=== PATIENT | male | born 1985 | race Caucasian/White ===

== ENCOUNTER 2017-05-04 12:12 | Emergency (ER) | payer OTHER ==
[~2017-05-04] VITALS: Ht 185.4 cm; Wt 99.3 kg
[~2017-05-04 12:12] MED LIST: AUGMENTIN 875875 MG PO; CLARITIN10 MG PO; FLONASE16 GM NS
[2017-05-04] MEDS ORDERED: CELEXA20 MG PO (12:22)
[2017-05-04 12:36] LABS: ABSOLUTE MONOCYTES 0.5 thou/uL (0.0-1.2); ABSOLUTE NEUTROPHILS 6.1 thou/uL (1.6-8.1); BASOPHILS 0.3 %; EOSINOPHILS 0.3 %; HEMATOCRIT 46.2 % (42.0-52.0); HEMOGLOBIN 15.6 gm/dL (14.0-18.0); LYMPHOCYTES 23.2 %; MCH 29.9 pg (26.0-34.0); MCHC 33.8 g/dL (28.0-37.0); MCV 88.5 fL (80.0-100.0); MONOCYTES 5.9 %; MPV 8.6 fl. (7.2-11.1); NUCLEATED RBCS 0 /100WBC; PLATELET COUNT* 221 thou/uL (150-400); POLYS 70.3 %; RBC 5.22 mil/uL (4.50-6.00); WBC 8.7 thou/uL (4.0-11.0)
[2017-05-04 12:45] LABS: CALCIUM 9.3 mg/dL (8.5-10.1); CREATININE 1.2 mg/dL (0.6-1.3); POTASSIUM 3.7 mmol/L (3.5-5.1)
[2017-05-04 12:50] LABS: ALBUMIN 4.5 g/dL (3.4-5.0); MAGNESIUM 1.8 mg/dL (1.8-2.4); TOTAL BILIRUBIN 0.4 mg/dL (<0.1-1.0); TOTAL PROTEIN 8.3 g/dL (6.4-8.2)
[2017-05-04 15:23] VITALS: BP 130/85
--- NOTE | 2017-05-04 16:03 | EKG ---
[place] [address] ELECTROCARDIOGRAM REPORT Name: JONATHAN LUONG Room: [facility]#: [id number] Admission: 05/04/17 Attend Phys: Discharge: 05/04/17 Date of : 83 Report #: [id number] THIS REPORT FOR: //name// [facility] ED Test Date: 2017-05-04 Test Time: 12:19:58 Pat Name: JONATHAN LUONG Department: Room: Gender: M Distribution Tech: Ninoska GIBBONS : 1985 Requested By: Melo Tomas Order Number: [id number] MD: Red Ghosh Measurements Intervals [place] Rate: 122 P: 61 NV: 166 QRS: 80 QRSD: 85 T: -32 QT: 303 QTc: 432 Interpretive Statements Sinus tachycardia Borderline T abnormalities, inferior leads Compared to ECG 01/13/2010 20:16:44 Sinus rhythm no longer present T-wave abnormality still present Electronically Signed On 05-04-2017 16:03:37 [employer] by Red Ghosh [email or web address] <ELECTRONICALLY SIGNED> By: Red Ghosh MD, [facility] 05/04/17 1603 1219 121 Red Ghosh MD, FAC /EPI
--- NOTE | 2017-05-06 06:10 | EKG ---
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 Insights Specialist: Ninoska GIBBONS : 1985 Requested By: Melo Tomas Order Number: [id number] MD: Matt Dill Measurements Intervals [place] Rate: 90 P: 45 CA: 204 QRS: 56 QRSD: 95 T: -17 QT: 364 QTc: 446 Interpretive Statements Sinus rhythm Prolonged CA interval Low voltage, precordial leads T abnormalities, inferior leads Compared to ECG 05/04/2017 12:19:58 Low QRS voltage now present Sinus tachycardia no longer present T-wave abnormality still present Electronically Signed On 05-06-2017 6:09:52 [employer]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
== END 2017-05-04 15:24 | disposition home or self-care (01) ==
LOC: M.ERS 12:12
PROVIDERS: Emergency Medicine Emergency Medical Services
DX: R07.89 Other chest pain (principal)

== ENCOUNTER → 2017-05-19 | Outpatient (CLI) | payer OTHER ==
[~2017-05-19] MED LIST changes: +CELEXA20 MG PO
--- NOTE | 2017-05-19 16:19 | EXE ---
[place] [address] STRESS ECHOCARDIOGRAM Name: JONATHAN LUONG Room: [facility]#: [id number] Admission: 05/19/17 Attend Phys: Matt Dill, Discharge: Date of : 83 Date of Service: 05/19/17 1619 Report #: [id number] THIS REPORT FOR: //name// APPROVED REPORT Exam: Stress Echocardiogram Indication: Chest pain Patient Location: Out-Patient Stress Nurse: Emilia Kim RN Supervising Physician: Donell Horvath MD Ht: 6 ft 0 in HR: 106 bpm BP: 149/105 mmHg Procedure The patient underwent an Exercise Stress Test using the Alphonse Protocol. Blood pressure, heart rate, and EKG were monitored. An Echocardiogram was performed by robotics testing technician in four stages in quad fashion. At peak stress, four selected images were obtained and placed side by side with resting images for comparison. Stress Test Details Stress Test: Exercise stress testing was performed using a Alphonse protocol. HR Resting HR: 106 bpm Max Heart Rate (APMHR): 188 bpm Max HR Achieved: 176 bpm Target HR (85% APMHR): 159 bpm % of APMHR: 93 Recovery HR: 106 bpm HR response to stress: Normal HR response to stress BP Resting BP: 149/105 mmHg Max BP: 185/74 mmHg Recovery BP: 135/83 mmHg ECG Resting ECG: Sinus Rhythm Stress ECG: Sinus Rhythm ST Change: Non-ischemic Arrhythmia: None Recovery ECG: Sinus Bradycardia Recovery ST Change: [place] [address] STRESS ECHOCARDIOGRAM Name: AGJONATHAN Room: [facility]#: [id number] Admission: 05/19/17 Attend Phys: Matt Dill, Discharge: Date of : 83 Date of Service: 05/19/17 1619 Report #: [id number] Clinical Reason for Termination: Completed protocol Stress Symptoms: Leg Fatigue Exercise duration: 9 min 32 sec Highest Stage Achieved: Stage 4: 4.2 mph at 16% grade. Exercise capacity: 11.00 METs Stress ECG Conclusion negative Pre-Stress Echo The resting Echocardiogram showed normal left ventricular contractility with an estimated Ejection Fraction of about 60-65%. Post-Stress Echo LV chamber size decreases, LV ejection fraction increases, no new wall motion abnormalities are seen. Conclusion Clinical Response: Non-ischemic Exercise Capacity: Average Stress ECG Response: Non-ischemic Stress Echo Images: Non-ischemic Negative stress echo test Other Information Study Quality: Good <Conclusion> Negative stress echo test <ELECTRONICALLY SIGNED> By: Donell Horvath MD, FACC 05/19/17 1619 18 1619 Donell Horvath MD, FACC /INF
== END ==
LOC: M.CRD 12:23
DX: R07.89 Other chest pain (principal)